=== PATIENT | female | born 1955 | race Caucasian/White ===

== ENCOUNTER 2017-09-23 06:21 | Inpatient (IN) | payer OTHER ==
[2017-09-19 10:17] VITALS: BMI 26.6
[2017-09-23] MEDS ORDERED: fentaNYL CITRATE 250 MCG/5 ML VIAL ONE ×2 (07:04→10:39)
[2017-09-23] MEDS ORDERED: TRANEXAMIC ACID 1000 MG/10 ML VIAL ONE ×2 (07:05→11:10)
[2017-09-23] MEDS ORDERED: DEXAMETHASONE SOD PHOSPHATE 4 MG/1 ML VIAL ONE (07:05)
[2017-09-23] MEDS ORDERED: MIDAZOLAM HCL 2 MG/2 ML SINGLE DOSE VIAL ONE (07:05)
[2017-09-23] MEDS ORDERED: THROMBIN (BOVINE) 5,000 UNIT VIAL TP ONE (07:05)
[2017-09-23] MEDS ORDERED: PROPOFOL 20 ML ONE ×12 (07:05→10:41)
[2017-09-23] MEDS ORDERED: HEPARIN NA (PORCINE) 5,000 UNITS/ML 1ML VIAL ONE (07:05)
[2017-09-23] MEDS ORDERED: LIDOCAINE HCL/PF 2% SDV 5ML VIAL ONE (07:05)
[2017-09-23] MEDS ORDERED: VANCOMYCIN 1,000 MG VIAL (RESTRICTED TO ID ONLY) ONE (07:05)
[2017-09-23] MEDS ORDERED: ONDANSETRON 4 MG/2 ML VIAL ONE (07:05)
[2017-09-23] MEDS ORDERED: SUCCINYLCHOLINE CHLORIDE 200 MG/10 ML VIAL ONE (07:05)
[2017-09-23] MEDS ORDERED: DESFLURANE GAS 240 ML BOTTLE IH ONE (07:16)
[2017-09-23] MEDS ORDERED: VANCOMYCIN 1,000 MG VIAL (RESTRICTED TO ID ONLY) IVPB ONE (07:45)
[2017-09-23] MEDS ORDERED: ceFAZolin SODIUM 1 GM VIAL ONE ×2 (08:54→18:37)
[2017-09-23] MEDS ORDERED: ceFAZolin SODIUM 1 GM VIAL IVPB ONE (08:55)
[2017-09-23] MEDS ORDERED: ROCURONIUM BROMIDE 50 MG/5 ML VIAL ONE (09:21)
[2017-09-23] MEDS ORDERED: NEOSTIGMINE METHYLSULFATE 0.5 MG/ML - 10 ML MDV ONE (09:59)
[2017-09-23] MEDS ORDERED: GLYCOPYRROLATE 0.2 MG/1 ML VIAL ONE (10:00)
[2017-09-23] MEDS ORDERED: ePHEDrine SULFATE 50 MG/1 ML AMPULE ONE (10:23)
[2017-09-23] MEDS: LACTATED RINGERS SOLUTION 1,000 ML IV SCH (11:45)
--- NOTE | 2017-09-23 11:45 | OP ---
Operative Note - Note: Operative Date: 09/23/17 Pre-Operative Diagnosis: L4-L5 spinal stenosis w/segmental instability Operation: 1. L4 laminectomy. 2. L4-L5 PLIF. 3. L4-L5 PISF Post-Operative Diagnosis: Same as Pre-op Surgeon: Baron Currie Block Tester: Gabriel Currie Anesthesiologist/CHARCOAL UNLOADER: Walker Vasquez Anesthesia: General Specimens Removed: L4-L5 disk Estimated Blood Loss (mls): 300 Blood Volume Replaced (mls): 125 (Cell Saver) Fluid Volume Replaced (mls): 1,200 Operative Report Dictated: Yes
[2017-09-23] MEDS ORDERED: diazePAM CARPU-JECT 10 MG/2 ML DISP.SYRIN IVPUSH PRN (11:47)
--- NOTE | 2017-09-23 11:47 | PN ---
Progress Note (short form) - Note Progress Note: 62F s/p L4 laminectomy, L4-L5 PLIF, & L4-L5 PISF POD #0. 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 -Mechanical DVT PPx. only: ANTONIO's, SCD's. -Incentive spirometry; pulmonary toilet. -PT/OT/Rehab, OOB. -WBAT B/L LE. -NPO until flatus. -f/u AM labs. -Frost catheter care; OK to d/c Frost when patient is ambulating. -Admit to medical hospitalist service. -Iva-op Antibiotics: Reza Magallanes. -Discharge planning. -Will follow. Baron Currie MD (Orthopaedic Surgery).
[2017-09-23] MEDS ORDERED: ACETAMINOPHEN INJECTION 100 ML IVPB ONE (12:22)
[2017-09-23] MEDS: ACETAMINOPHEN 1000 MG/100 ML VIAL (NON FORMULARY) IVPB SCH ×2 (12:25→22:12)
[2017-09-23] MEDS ORDERED: VANCOMYCIN 1,000 MG in DEXTROSE 5%-WATER - 250 ML IVPB ONE (12:30)
[2017-09-23] MEDS ORDERED: HYDROmorphone *PCA* 10MG/50ML DISP.SYRIN PCA ONE (12:48)
[2017-09-23] MEDS: HYDROmorphone *PCA* 10MG/50ML DISP.SYRIN PCA SCH (12:51)
--- NOTE | 2017-09-23 13:52 | OP ---
DATE OF OPERATION: 09/23/2017 SURGEON: Baron Currie MD MANAGEMENT AIDE: Gabriel Currie MD PREOPERATIVE DIAGNOSIS: Lumbar disk prolapse L4-5 with spinal stenosis, segmental instability, and right-sided L4 radiculopathy. POSTOPERATIVE DIAGNOSIS: Lumbar disk prolapse L4-5 with spinal stenosis, segmental instability, and right-sided L4 radiculopathy. OPERATION PERFORMED: 1. Laminectomy L4. 2. Diskectomy L4-5 with posterior lumbar interbody fusion. 3. Pedicle screw instrumentation L4-5. 4. Posterior arthrodesis L4-5. 5. Use of autologous bone graft and bone marrow aspirate concentrate. 6. Complex wound closure 4 layers. ANESTHESIA: General. ANTIBIOTICS GIVEN: Included 2 g Kefzol and 1 of vancomycin. PROCEDURE: Timeout was called. Imaging was available for intraoperative evaluation. Lumbar spine prepped and draped in a routine manner with Betadine scrub solution. Wiped off with alcohol. DuraPrep applied. The lumbar spine was prepped and draped in the routine manner. Midline incision utilized. Verification of the level of the incision was verified with lateral fluoroscopic x-ray. Dissection was taken down the spinous process of the lamina over the tip of the transverse processes. The intertransverse plane was packed with sponges. The lamina of L4 were resected. This gave easy access to the theca. There was no epidural fat. The flavum was resected. The entire lamina of L4 was removed for easy access to the central disk prolapse. Retraction from right to left enabled easy access to the disk. Disk bulging annulus was readily seen. This was resected. An 11 blade utilized and elliptical annulectomy performed. Shaving with a size 11 and a size 12 Tetrafuse cage was packed into the interdisk space. Prior to the packing of this, all disk material was removed and soft tissue elements down to endplate to healthy, bleeding bone. The disk was packed from the posterior elements that were removed in a [employer] morselised bony elements into the disk space, thus completing anterior arthrodesis, and the cage was filled with graft itself. This was press fit into position. This gave excellent x-ray visualization and wide-open disk space noted. Pedicles of L4 and L5 were identified using anatomic guidelines. Lateral fluoroscopic x-ray guided screws under the endplates. The screws were 40 x 6.5-mm screws (Precision screws). The rods measured 40 x 2. The screws were tested with intraoperative neuromonitoring and found to be completely safe well above the neuromonitoring safe standards, that is well above 20 mA in each cage. Once this had been performed, the intertransverse plane was packed with graft. This was a combination of autologous allograft expanded with strips all mixed with CD34 cells, mainly marrow harvested from the left posterior ilium spun down for the CD34 cells as bone marrow aspirate concentrate. The wounds were thoroughly lavaged. No complications. All neuromonitoring and x-rays revealed excellent positioning of implants. Closure: Muscle 1 Vicryl, fascia 1 Vicryl, subcutaneous 1- and 2-0 Vicryl, skin 3-0 Monocryl with Steri-Strips. No drains. Operation tolerated well. No complications. MD PAUL Khoury/[id number] MTDD
[2017-09-23] MEDS ORDERED: CITALOPRAM HYDROBROMIDE 10 MG TABLET (FP) PO PRN (15:50)
[2017-09-23] MEDS: CEFAZOLIN 1 GM in DEXTROSE 5%-WATER - 50 ML IVPB SCH (18:44)
[2017-09-23] MEDS ORDERED: VANCOMYCIN 1 GRAM (PRE-DOCKED) 1,000 MG/250 ML BAG IVPB ONE (20:00)
[2017-09-24] MEDS: HYDROmorphone *PCA* 10MG/50ML DISP.SYRIN PCA SCH ×2 (00:44→16:35)
[2017-09-24] MEDS: LACTATED RINGERS SOLUTION 1,000 ML IV SCH ×2 (00:51→12:02)
[2017-09-24] MEDS: CEFAZOLIN 1 GM in DEXTROSE 5%-WATER - 50 ML IVPB SCH (03:06)
[2017-09-24] MEDS ORDERED: CEFAZOLIN 1 GM/D5W 1 GM/50 ML BAG IVPB ONE (03:15)
[2017-09-24] MEDS: ACETAMINOPHEN 1000 MG/100 ML VIAL (NON FORMULARY) IVPB SCH ×3 (06:00→20:11)
[2017-09-24 08:12] LABS: HEMATOCRIT 30.3 % (32.4-45.2); HEMOGLOBIN 10.2 GM/dL (10.7-15.3); MCH 29.2 pg (25.7-33.7); MCHC 33.8 g/dl (32.0-36.0); MEAN CELL VOLUME 86.4 fl (80-96); MEAN PLT VOLUME 10.6 fl (7.5-11.1); PLATELET COUNT 126 K/MM3 (134-434); RBC 3.51 M/mm3 (3.60-5.2); RDW 13.4 % (11.6-15.6); WHITE BLOOD COUNT 11.2 K/mm3 (4.0-10.0)
[2017-09-24 08:16] LABS: ANION GAP 4 (8-16); BLOOD UREA NITROGEN 9 mg/dL (7-18); CALCIUM 8.2 mg/dL (8.5-10.1); CHLORIDE 107 mmol/L (98-107); CO2 30 mmol/L (21-32); CREATININE 0.4 mg/dL (0.55-1.02); GLUCOSE,RANDOM 106 mg/dL (74-106); POTASSIUM 4.1 mmol/L (3.5-5.1); SODIUM 141 mmol/L (136-145)
--- NOTE | 2017-09-24 09:06 | HP ---
CHIEF COMPLAINT: PCP: Dr. Lewis HISTORY OF PRESENT ILLNESS: Patient is a 62 year old female came in to the hospital for an Elective Laminectomy. As per the patient, she had chronic low back pain, had h/o mechanical fall twice in 2012 and 2014. Low back pain had been progressively getting worse since then. Saw Dr. Currie as outpatient and elective laminectomy was done yesterday (09/23/2017). Patient is currently on Dilaudid HRIS ADMINISTRATOR for pain control. Complaints of pain at the surgical site, controlled with HRIS ADMINISTRATOR, has nausea and vomited once this morning, non bloody, non projectile, thin greenish liquid. Denies chest pain, sob, cough, palpitation, abdominal pain, tingling or numbness. Has been passing flatus. Frost in place. Recent Travel: None PAST MEDICAL HISTORY: Hypertension, Hyperlipidemia, Depression PAST SURGICAL HISTORY: 3 c-sec Social History: Smoking: Quit > 30 yrs ago Alcohol: Socially Drugs: Denies Family History: Non contributory Allergies Penicillins Allergy (Severe, Verified 09/23/17 07:01) Itching HOME MEDICATIONS: Home Medications Medication Instructions Recorded Amlodipine Besylate 5 mg PO DAILY 09/19/17 Citalopram Hydrobromide 10 mg PO PRN PRN 09/19/17 [Citalopram HBr] Losartan Potassium 50 mg PO DAILY 09/19/17 Pravastatin Sodium 20 mg PO HS 09/19/17 Ibuprofen 800 mg PO PRN PRN 09/23/17 Naproxen [Naprosyn] 500 mg PO PRN PRN 09/23/17 REVIEW OF SYSTEMS CONSTITUTIONAL: Absent: fever, chills, diaphoresis, generalized weakness, malaise, loss of appetite, weight change HEENT: Absent: rhinorrhea, nasal congestion, throat pain, throat swelling, difficulty swallowing, mouth swelling, ear pain, eye pain, visual changes CARDIOVASCULAR: Absent: chest pain, syncope, palpitations, irregular heart rate, lightheadedness , peripheral edema RESPIRATORY: Absent: cough, shortness of breath, dyspnea with exertion, orthopnea, wheezing, stridor, hemoptysis GASTROINTESTINAL: Present: nausea, vomiting Absent: abdominal pain, abdominal distension, diarrhea, constipation, melena, hematochezia GENITOURINARY: Absent: dysuria, frequency, urgency, hesitancy, hematuria, flank pain, genital pain MUSCULOSKELETAL: Present: back pain at the surgical site Absent: myalgia, arthralgia, joint swelling, neck pain SKIN: Absent: rash, itching, pallor HEMATOLOGIC/IMMUNOLOGIC: Absent: easy bleeding, easy bruising, lymphadenopathy, frequent infections ENDOCRINE: Absent: unexplained weight gain, unexplained weight loss, heat intolerance, cold intolerance NEUROLOGIC: Absent: headache, focal weakness or paresthesias, dizziness, unsteady gait, seizure, mental status changes, bladder or bowel incontinence PSYCHIATRIC: Absent: anxiety, depression, suicidal or homicidal ideation, hallucinations. PHYSICAL EXAMINATION Vital Signs - 24 hr 09/23/17 09/23/17 09/23/17 11:36 11:45 12:00 Temperature 97.6 F Pulse Rate 74 73 69 Respiratory 14 14 10 L Rate Blood Pressure 110/75 129/73 105/76 O2 Sat by Pulse 100 100 100 Oximetry (%) 09/23/17 09/23/17 09/23/17 12:15 12:30 12:45 Temperature Pulse Rate 71 86 77 Respiratory 11 L 14 14 Rate Blood Pressure 112/57 100/62 108/76 O2 Sat by Pulse 100 100 100 Oximetry (%) 09/23/17 09/23/17 09/23/17 12:51 13:00 13:15 Temperature Pulse Rate 77 9 L 66 Respiratory 14 11 L 10 L Rate Blood Pressure 108/73 112/72 106/61 O2 Sat by Pulse 99 100 Oximetry (%) 09/23/17 09/23/17 09/23/17 13:30 13:45 14:00 Temperature Pulse Rate 55 L 69 61 Respiratory 10 L 11 L 10 L Rate Blood Pressure 105/70 118/70 106/61 O2 Sat by Pulse 100 100 100 Oximetry (%) 09/23/17 09/23/17 09/23/17 14:15 14:30 14:45 Temperature Pulse Rate 60 61 60 Respiratory 15 12 10 L Rate Blood Pressure 102/56 104/58 101/52 O2 Sat by Pulse 100 100 100 Oximetry (%) 09/23/17 09/23/17 09/23/17 15:00 15:15 15:30 Temperature Pulse Rate 72 73 72 Respiratory 11 L 12 16 Rate Blood Pressure 100/58 100/47 100/50 O2 Sat by Pulse 100 100 100 Oximetry (%) 04/09/18 04/09/18 04/09/18 15:45 16:00 16:30 Temperature Pulse Rate 76 82 68 Respiratory 13 16 12 Rate Blood Pressure 105/59 98/59 100/62 O2 Sat by Pulse 98 100 Oximetry (%) 09/23/17 09/23/17 09/23/17 17:00 17:30 17:45 Temperature Pulse Rate 80 79 68 Respiratory 20 15 12 Rate Blood Pressure 111/68 117/64 106/58 O2 Sat by Pulse 100 100 Oximetry (%) 09/23/17 09/23/17 09/23/17 18:00 18:30 19:00 Temperature Pulse Rate 71 60 66 Respiratory 16 18 18 Rate Blood Pressure 100/58 100/57 100/58 O2 Sat by Pulse 100 100 100 Oximetry (%) 09/23/17 09/23/17 09/24/17 19:30 22:00 00:44 Temperature 98.3 F 98.5 F Pulse Rate 62 68 75 Respiratory 18 18 18 Rate Blood Pressure 102/66 120/63 110/62 O2 Sat by Pulse 98 Oximetry (%) 09/24/17 09/24/17 01:14 07:00 Temperature 98.8 F Pulse Rate 70 72 Respiratory 18 18 Rate Blood Pressure 110/65 96/59 O2 Sat by Pulse Oximetry (%) GENERAL: Patient is lying in bed, Awake, alert, and fully oriented, in no acute distress. HEAD: Normal with no signs of trauma. EYES: EOM intact, no pallor or icterus. EARS, NOSE, THROAT: Ears normal. Moist mucous membranes. NECK: Supple. LUNGS: B/L Breath sounds equal, clear to auscultation bilaterally. No wheezes, and no crackles. No accessory muscle use. HEART: Regular rate and rhythm, normal S1 and S2 without murmur. ABDOMEN: Soft, nontender, not distended, normoactive bowel sounds, no guarding, no rebound, no masses. No hepatomegaly or splenomegaly. MUSCULOSKELETAL: Dressing applied over the surgical site in the back, surrounding area looks clean, non erythematous. UPPER EXTREMITIES: 2+ pulses, warm, well-perfused. No cyanosis. No clubbing. No peripheral edema. LOWER EXTREMITIES: 2+ pulses, warm, well-perfused. No calf tenderness. No peripheral edema. NEUROLOGICAL: Normal speech. Gait not observed. PSYCHIATRIC: Cooperative. Good eye contact. Appropriate mood and affect. SKIN: Warm, dry, normal turgor, no rashes or lesions noted, normal capillary refill. Laboratory Results - last 24 hr 09/24/17 09/24/17 06:15 06:15 WBC 11.2 H RBC 3.51 L Hgb 10.2 L Hct 30.3 L MCV 86.4 MCH 29.2 MCHC 33.8 RDW 13.4 Plt Count 126 L MPV 10.6 Sodium 141 Potassium 4.1 Chloride 107 Carbon Dioxide 30 Anion Gap 4 L BUN 9 Creatinine 0.4 L Random Glucose 106 Calcium 8.2 L ASSESSMENT/PLAN: Patient is a 62 year old female with chronic low back pain came in to the hospital for an Elective Laminectomy. # Low back pain secondary to L4-L5 spinal stenosis with segmental instability- POD 1 s/p L4 Laminectomy; L4- L5 PLIF, L4-L5 PISF Estimated blood loss- 300 mls, cell saver 125 mls. 1200 ml fluid was replaced. IV LR @ 100 mls/hr On HRIS ADMINISTRATOR Dilaudid pump for pain control IV Zofran 4 mg Q6H PRN (Normal Qtc) IV Tylenol Frost in place Incentive Spirometer NPO, advance diet as per Dr. Currie. PT when tolerated. # Hypertension- now hypotensive Will hold home medication for today- Amlodipine 5 mg; Losartan 50mg # Hyperlipidemia Continue Pravastatin 20mg PO HS # Depression Continue Citalopram 10mg # All medications confirmed with pharmacy # FEN IV LR @ 100 mls/hr Electrolytes WNL NPO except for meds and ice chips # Prophylaxis For DVT: ON SCDs For GI: Not indicated # Code Status: Full Code # Dispo: Duration of stay unknown. Illness, Investigation and plan of care explained to the patient. She verbalized understanding. Case discussed with Dr. Simmons. Visit type - Emergency Visit Emergency Visit: Yes ED Registration Date: 09/23/17 Care time: The patient presented to the Emergency Department on the above date and was hospitalized for further evaluation of their emergent condition. - New Patient This patient is new to me today: Yes Date on this admission: 09/23/17 - Critical Care Critical Care patient: No Hospitalist Screening - Colonoscopy Questionnaire Colonoscopy Questionnaire: Colonoscopy Questionnaire - Patient: 50 - 75 years old and never had a screening colonoscopy: Unknown History of colon or rectal polyps, or CA: Unknown History of IBD, Crohn's disease or UC: Unknown History of abdominal radiation therapy as a child: Unknown - Relative: 1 with colon or rectal CA, or polyps at age 60 or younger: Unknown Colon or rectal CA diagnosed at age 45 or younger: Unknown Multiple relatives with colon or rectal CA: Unknown - Outcome: Screening Result: Negative Screen
[2017-09-24] MEDS: ONDANSETRON 4 MG/2 ML VIAL IVPUSH PRN (09:57)
[2017-09-24] MEDS ORDERED: LOSARTAN POTASSIUM 50 MG TABLET (FP) PO SCH ×2 (10:00→12:26)
[2017-09-24] MEDS ORDERED: amLODIPine BESYLATE 5 MG TABLET (FP) PO SCH ×2 (10:00→12:26)
--- NOTE | 2017-09-24 15:04 | PN ---
Teaching Attending Note Name of Resident: Ledy Rodriguez ATTENDING PHYSICIAN STATEMENT I saw and evaluated the patient. I reviewed the resident's note and discussed the case with the resident. I agree with the resident's findings and plan as documented with exceptions below. SUBJECTIVE: 62 yof with PMhx of HTN, HLD, depression, chronic back pain admitted for elective laminectomy today. Currently reports back pain under well control, no new leg weakness/tingling/ numbness, chest pain, palpitations, dyspnea or dizziness noted. OBJECTIVE: Vital Signs Period Temp Pulse Resp BP Sys/Desai Pulse Ox Last 24 Hr 98.0 F-98.8 F 60-115 12-20 96-120/57-78 98-100 Intake & Output 09/21/17 09/22/17 09/23/17 09/24/17 23:59 23:59 23:59 23:59 Intake Total 2475 1300 Output Total 3700 750 Balance -1225 550 GENERAL: Awake, alert, and fully oriented, in no acute distress. HEAD: Normal with no signs of trauma. EYES: Pupils equal, round and reactive to light, extraocular movements intact, sclera anicteric, conjunctiva clear. No lid lag. EARS, NOSE, THROAT: Ears normal, nares patent, oropharynx clear without exudates. mildly dry mucous membrane NECK: soft, supple, no JVD LUNGS: Breath sounds equal, clear to auscultation bilaterally. No wheezes, and no crackles. No accessory muscle use. HEART: S1S2 regular ABDOMEN: Soft, nontender, not distended, normoactive bowel sounds, no guarding, no rebound, no masses. MUSCULOSKELETAL: spinal dressing in place, no drainage or blood noted in the area, no surrounding swelling, LE movements limited from back pain (chronic per patient) UPPER EXTREMITIES: 2+ pulses, warm, well-perfused. No cyanosis. No clubbing. No peripheral edema. LOWER EXTREMITIES: 2+ pulses, warm, well-perfused. No calf tenderness. No peripheral edema. NEUROLOGICAL: AAOx3, tongue midline, facial symmetry, power 5/5 UE, LE 5/5 at feet, movements limited by pain, no gross deficit PSYCHIATRIC: Cooperative. Good eye contact. Appropriate mood and affect. SKIN: Warm, dry, mildly decreased skin turgor, no rashes or lesions noted, normal capillary refill. Home Medication List Medication Instructions Recorded Confirmed Type Amlodipine Besylate 5 mg PO DAILY 09/19/17 09/23/17 History Citalopram Hydrobromide 10 mg PO PRN PRN 09/19/17 09/23/17 History [Citalopram HBr] Losartan Potassium 50 mg PO DAILY 09/19/17 09/23/17 History Pravastatin Sodium 20 mg PO HS 09/19/17 09/23/17 History Ibuprofen 800 mg PO PRN PRN 09/23/17 09/23/17 History Naproxen [Naprosyn] 500 mg PO PRN PRN 09/23/17 09/23/17 History Active Medications Generic Name Dose Route Start Last Admin Trade Name Freq PRN Reason Stop Dose Admin Acetaminophen 1,000 mg 09/23/17 12:00 09/24/17 14:09 Ofirmev Injection - IVPB 09/25/17 04:01 1,000 mg Q8H DAMIÁN Administration Amlodipine Besylate 5 mg 09/24/17 12:26 Norvasc - PO DAILY DAMIÁN Citalopram Hydrobromide 10 mg 09/23/17 15:50 Celexa - PO DAILY PRN DEPRESSION Hydromorphone HCl 10 mg 09/23/17 12:00 09/24/17 00:44 Dilaudid Roller Die Cutting Machine Operator - TECHNICAL ACCOUNT EXECUTIVE 09/26/17 11:55 10 mg TECHNICAL ACCOUNT EXECUTIVE DAMIÁN Administration Protocol Lactated Ringer's 1,000 mls @ 100 mls/hr 09/23/17 12:00 09/24/17 12:02 Lactated Ringers Solution IV Not Given ASDIR DAMIÁN Losartan Potassium 50 mg 09/24/17 12:26 Cozaar - PO DAILY DAMIÁN Ondansetron HCl 4 mg 09/23/17 11:47 09/24/17 09:57 Zofran Injection IVPUSH 4 mg Q6H PRN Administration NAUSEA AND/OR VOMITING Laboratory Results - last 24 hr 09/24/17 09/24/17 06:15 06:15 WBC 11.2 H RBC 3.51 L Hgb 10.2 L Hct 30.3 L MCV 86.4 MCH 29.2 MCHC 33.8 RDW 13.4 Plt Count 126 L MPV 10.6 Sodium 141 Potassium 4.1 Chloride 107 Carbon Dioxide 30 Anion Gap 4 L BUN 9 Creatinine 0.4 L Random Glucose 106 Calcium 8.2 L ASSESSMENT AND PLAN: 62 yof with HTN, HLD, depression, chronic back pain s/p elective laminectomy -Chronic back pain s/p elective laminectomy -HTN -HLD -Depression Plan: Dilaudid TECHNICAL ACCOUNT EXECUTIVE. Advance diet, PT per Dr. Currie. Bowel regimen. Hold home anti-hypertensives today, resume in AM based on BP readings. Continue statin/citalopram DVTPPx per Dr Currie Dispo planning PT eval, and clinical improvement. Total admit time spent 55 min.
--- NOTE | 2017-09-24 16:43 | PATH ---
Surgical Pathology Report Patient Name: BRE FELDER Med. Rec. #: [id number] /Age/Gender: 1955 (Age: 62) / F Account: [id number] Location: [facility] MED/SURG Taken: 09/23/2017 Received: 09/23/2017 Reported: 09/24/2017 Physicians: Baron Currie M.D. Specimen(s) Received DISC L4/L5 Clinical History Lumbar disc disorder Final Diagnosis DISC, L4/L5, POSTERIOR INTERBODY FUSION: INTERVERTEBRAL DISC TISSUE AND SCANT BONE. Electronically Signed Bre Carter M.D. Gross Description Received in formalin labeled "disc L4/L5," is a 3.5 x 2.8 x 0.4 cm aggregate of casiano fragments of fibrocartilaginous tissue. A field representative/health education portion is submitted in one cassette. /09/23/2017 saudi/09/23/2017
--- NOTE | 2017-09-24 18:21 | PN ---
Progress Note, Physician Chief Complaint: Pt. pain controlled with TRACTION POWER ENGINEER. Had some nausea controlled with Zofran. Did not do PT today because of nausea. Advised her to take Zofran before PT tomorrow. - Current Medication List Current Medications: Active Medications Acetaminophen (Ofirmev Injection -) 1,000 mg IVPB Q8H [facility] Stop: 09/25/17 04:01 Last Admin: 09/24/17 14:09 Dose: 1,000 mg Amlodipine Besylate (Norvasc -) 5 mg PO DAILY DAMIÁN Citalopram Hydrobromide (Celexa -) 10 mg PO DAILY PRN PRN Reason: DEPRESSION Hydromorphone HCl (Dilaudid Bilingual Call Center Representative -) 10 mg TRACTION POWER ENGINEER TRACTION POWER ENGINEER DAMIÁN PRN Reason: Protocol Stop: 09/26/17 11:55 Last Admin: 09/24/17 16:35 Dose: Not Given Lactated Ringer's (Lactated Ringers Solution) 1,000 mls @ 100 mls/hr IV ASDIR DAMIÁN Last Admin: 09/24/17 12:02 Dose: Not Given Losartan Potassium (Cozaar -) 50 mg PO DAILY [facility] Ondansetron HCl (Zofran Injection) 4 mg IVPUSH Q6H PRN PRN Reason: NAUSEA AND/OR VOMITING Last Admin: 09/24/17 09:57 Dose: 4 mg - Objective Vital Signs: Vital Signs Temperature 100.4 F H 09/24/17 18:17 Pulse Rate 80 09/24/17 18:17 Respiratory Rate 20 09/24/17 18:17 Blood Pressure 97/42 09/24/17 18:17 O2 Sat by Pulse Oximetry (%) 98 09/23/17 22:00 Constitutional: Yes: Well Nourished, No Distress, Calm Neurological: Yes: WNL, Alert, Oriented Labs: CBC, BMP 09/24/17 06:15 09/24/17 06:15 Assessment/Plan POD#1 s/p L4-5 fusion under GA with TRACTION POWER ENGINEER for pain control. Doing well. Continue TRACTION POWER ENGINEER.
[2017-09-25] MEDS: LACTATED RINGERS SOLUTION 1,000 ML IV SCH ×3 (01:05→20:29)
--- NOTE | 2017-09-25 06:00 | PN ---
Physical Exam: SUBJECTIVE: Patient seen and examined - febrile to 100.4 overnight; c/o of n/v, received zofran; currently NPO - No major overnight events; Mild pain/burning at surgical site, L>R; Mild nausea, no vomiting; No BMs/flatus; Denies f/c/v/d, CP, cough, ab pain, back pain; no neuro symptoms OBJECTIVE: Vital Signs Intake & Output 09/22/17 09/23/17 09/24/17 09/25/17 23:59 23:59 23:59 23:59 Intake Total 2475 2300 Output Total 3700 1150 Balance -1225 1150 Period Temp Pulse Resp BP Sys/Desai Pulse Ox Last 24 Hr 98.0 F-100.4 F 70-115 18-20 96-117/42-78 GENERAL: Middle aged woman, NAD, A&Ox3 HEAD: Normal with no signs of trauma. EYES: PERRL, extraocular movements intact, sclera anicteric, conjunctiva clear. No ptosis. ENT: Ears normal, nares patent, oropharynx clear without exudates, moist mucous membranes. NECK: Trachea midline, full range of motion, supple. LUNGS: Breath sounds equal, clear to auscultation bilaterally, no wheezes, no crackles, no accessory muscle use. HEART: Regular rate and rhythm, S1, S2 without murmur, rub or gallop. ABDOMEN: L CVA tenderness. No erythema or purulence at surgical site. Soft, nontender, nondistended, normoactive bowel sounds, no guarding, no rebound, no hepatosplenomegaly, no masses. EXTREMITIES: 2+ pulses, warm, well-perfused, no edema. NEUROLOGICAL: Cranial nerves II through XII grossly intact. Normal speech, gait not observed. PSYCH: Normal mood, normal affect. SKIN: Warm, dry, normal turgor, no rashes or lesions noted Laboratory Results - last 24 hr CBC, BMP 09/24/17 06:15 09/24/17 06:15 09/24/17 09/24/17 06:15 06:15 WBC 11.2 H RBC 3.51 L Hgb 10.2 L Hct 30.3 L MCV 86.4 MCH 29.2 MCHC 33.8 RDW 13.4 Plt Count 126 L MPV 10.6 Sodium 141 Potassium 4.1 Chloride 107 Carbon Dioxide 30 Anion Gap 4 L BUN 9 Creatinine 0.4 L Random Glucose 106 Calcium 8.2 L Active Medications Generic Name Dose Route Start Last Admin Trade Name William PRN Reason Stop Dose Admin Amlodipine Besylate 5 mg 09/24/17 12:26 Norvasc - PO DAILY DAMIÁN Citalopram Hydrobromide 10 mg 09/23/17 15:50 Celexa - PO DAILY PRN DEPRESSION Hydromorphone HCl 10 mg 09/23/17 12:00 09/24/17 16:35 Dilaudid Insole Channeler - STRIP PICKER 09/26/17 11:55 Not Given STRIP PICKER DAMIÁN Protocol Lactated Ringer's 1,000 mls @ 100 mls/hr 09/23/17 12:00 09/25/17 01:05 Lactated Ringers Solution IV 100 mls/hr ASDIR DAMIÁN Administration Losartan Potassium 50 mg 09/24/17 12:26 Cozaar - PO DAILY DAMIÁN Ondansetron HCl 4 mg 09/23/17 11:47 09/24/17 09:57 Zofran Injection IVPUSH 4 mg Q6H PRN Administration NAUSEA AND/OR VOMITING Urine, blood cultures pending No recent imaging ASSESSMENT/PLAN: Patient is a 62 year old female with chronic low back pain came in to the hospital for an Elective Laminectomy. POD1, doing well. very mild fever overnight. Urine culture # Low back pain secondary to L4-L5 spinal stenosis with segmental instability- POD 1 - IV LR @ 100 mls/hr - Dilaudid STRIP PICKER -IV Zofran 4 mg Q6H PRN (Normal Qtc) -IV Tylenol - d/c webb -Incentive Spirometer - remainder of plan per surgical team #Post-op fever -101 today - U/A, blood and urine cultures sent - ISS counseling #Constipation - Senna, colace - Miralax PRN # Hypertension- BP normotensive today hold home meds - Amlodipine 5 mg; Losartan 50mg # Hyperlipidemia Continue Pravastatin 20mg PO HS # Depression Continue Citalopram 10mg # FEN IV LR @ 100 mls/hr Electrolytes WNL NPO until flatus or BM, then clears # Prophylaxis For DVT-SCDs # Code Status: Full Code #Dispo - M/S Plan discussed with attending, Dr Troy Jaquez, PGY1 Visit type - Emergency Visit Emergency Visit: Yes ED Registration Date: 09/23/17 Care time: The patient presented to the Emergency Department on the above date and was hospitalized for further evaluation of their emergent condition. - New Patient This patient is new to me today: No - Critical Care Critical Care patient: No
[2017-09-25] MEDS: ACETAMINOPHEN 1000 MG/100 ML VIAL (NON FORMULARY) IVPB SCH (06:24)
[2017-09-25 07:24] LABS: HEMATOCRIT 28.4 % (32.4-45.2); HEMOGLOBIN 9.6 GM/dL (10.7-15.3); MCH 29.4 pg (25.7-33.7); MCHC 33.8 g/dl (32.0-36.0); MEAN CELL VOLUME 86.9 fl (80-96); PLATELET COUNT 110 K/MM3 (134-434); RBC 3.26 M/mm3 (3.60-5.2); RDW 13.3 % (11.6-15.6)
[2017-09-25] MEDS ORDERED: SODIUM CHLORIDE 500 ML IV STA (07:59)
--- NOTE | 2017-09-25 15:13 | PN ---
Teaching Attending Note Name of Resident: Dread Jaquez ATTENDING PHYSICIAN STATEMENT I saw and evaluated the patient. I reviewed the resident's note and discussed the case with the resident. I agree with the resident's findings and plan as documented with exceptions below. SUBJECTIVE: Patient seen and examined. back pain well controlled, no new cough, dyspnea, abdominal or urinary symptoms, overall feels well. OBJECTIVE: Vital Signs Period Temp Pulse Resp BP Sys/Desai Pulse Ox Last 24 Hr 98.0 F-101 F 70-86 18-20 97-135/42-66 Intake & Output 09/22/17 09/23/17 09/24/17 09/25/17 23:59 23:59 23:59 23:59 Intake Total 2475 2300 1300 Output Total 3700 1150 800 Balance -1225 1150 500 General: lying in bed in no acute distress Back: clean dressing, unchanged exam Abdomen:soft, obese, NT extremities: no edema Chest; CTAB, no rales or wheezing Home Medication List Medication Instructions Recorded Confirmed Type Amlodipine Besylate 5 mg PO DAILY 09/19/17 09/23/17 History Citalopram Hydrobromide 10 mg PO PRN PRN 09/19/17 09/23/17 History [Citalopram HBr] Losartan Potassium 50 mg PO DAILY 09/19/17 09/23/17 History Pravastatin Sodium 20 mg PO HS 09/19/17 09/23/17 History Ibuprofen 800 mg PO PRN PRN 09/23/17 09/23/17 History Naproxen [Naprosyn] 500 mg PO PRN PRN 09/23/17 09/23/17 History Active Medications Generic Name Dose Route Start Last Admin Trade Name Freq PRN Reason Stop Dose Admin Citalopram Hydrobromide 10 mg 09/23/17 15:50 Celexa - PO DAILY PRN DEPRESSION Hydromorphone HCl 10 mg 09/23/17 12:00 09/24/17 16:35 Dilaudid Duplex Trimmer - DEBONE PROCESSING SUPERVISOR 09/26/17 11:55 Not Given DEBONE PROCESSING SUPERVISOR DAMIÁN Protocol Lactated Ringer's 1,000 mls @ 100 mls/hr 09/23/17 12:00 09/25/17 09:47 Lactated Ringers Solution IV 100 mls/hr ASDIR DAMIÁN Administration Ondansetron HCl 4 mg 09/23/17 11:47 09/24/17 09:57 Zofran Injection IVPUSH 4 mg Q6H PRN Administration NAUSEA AND/OR VOMITING Laboratory Results - last 24 hr 09/25/17 05:35 WBC 10.0 RBC 3.26 L Hgb 9.6 L Hct 28.4 L MCV 86.9 MCH 29.4 MCHC 33.8 RDW 13.3 Plt Count 110 L MPV 11.0 ASSESSMENT AND PLAN: 62 yof with HTN, HLD, depression, chronic back pain s/p elective laminectomy -Chronic back pain s/p elective laminectomy -Fever post-op day 1 -HTN -HLD -Depression Plan: Dilaudid DEBONE PROCESSING SUPERVISOR. Advance diet, PT per Dr. Currie. Bowel regimen. Tmax 101 today, u/a, blood/urine cultures. Stressed patient need for incentive spirometry q1h when awake. Monitor for now. Hold home anti-hypertensives today as still with soft BP and NPO. Continue statin/citalopram DVTPPx per Dr Currie Dispo planning PT eval, and clinical improvement. Plan discussed with patient in detail, all questions answered.
[2017-09-25] MEDS ORDERED: POLYETHYLENE GLYCOL 3350 119 GM BTL PO PRN (16:20)
[2017-09-25 16:43] LABS: URINE APPEARANCE CLEAR; URINE BILIRUBIN NEGATIVE (<2.0 mg/dL); URINE COLOR LTYELLOW; URINE GLUCOSE (UA) NEGATIVE (NEGATIVE); URINE KETONE 2+ (NEGATIVE); URINE LEUK ESTERASE NEGATIVE (NEGATIVE); URINE NITRITE NEGATIVE (NEGATIVE); URINE PROTEIN NEGATIVE (NEGATIVE); URINE UROBILINOGEN NEGATIVE mg/dL (0.2-1.0)
[2017-09-25] MEDS: ONDANSETRON 4 MG/2 ML VIAL IVPUSH PRN (17:27)
[2017-09-25] MEDS ORDERED: ACETAMINOPHEN 1000 MG/100 ML VIAL (NON FORMULARY) IVPB ONE (17:59)
[2017-09-25] MEDS: HYDROmorphone *PCA* 10MG/50ML DISP.SYRIN PCA SCH (21:32)
[2017-09-25] MEDS: DOCUSATE SODIUM 100 MG CAPSULE (FP) PO SCH (21:35)
[2017-09-25] MEDS: SENNOSIDES 8.6MG TABLET (FP) PO SCH (21:35)
--- NOTE | 2017-09-26 06:31 | PN ---
Physical Exam: SUBJECTIVE: Patient seen and examined by me this AM - No major overnight events; febrile to 101; pt complaining of BL back pain which she describes as "stinging"; Bl anterior thigh cramping; Still no BM or flatus, despite bowel regimen; on clears currently, mild nausea OBJECTIVE: Vital Signs Intake & Output 09/23/17 09/24/17 09/25/17 09/26/17 23:59 23:59 23:59 23:59 Intake Total 2475 2300 2750 Output Total 3700 1150 1200 Balance -1225 1150 1550 Period Temp Pulse Resp BP Sys/Desai Pulse Ox Last 24 Hr 98.2 F-101 F 68-95 18-20 98-135/54-84 99 GENERAL: Middle aged woman, NAD, A&Ox3 HEAD: Normal with no signs of trauma. EYES: PERRL, extraocular movements intact, sclera anicteric, conjunctiva clear. No ptosis. ENT: Ears normal, nares patent, oropharynx clear without exudates, moist mucous membranes. NECK: Trachea midline, full range of motion, supple. LUNGS: Breath sounds equal, clear to auscultation bilaterally, no wheezes, no crackles, no accessory muscle use. HEART: Regular rate and rhythm, S1, S2 without murmur, rub or gallop. ABDOMEN: BL CVA tenderness. No erythema or purulence at surgical site, dressing c/d/i. Soft, nontender, nondistended, normoactive bowel sounds, no guarding, no rebound, no hepatosplenomegaly, no masses. EXTREMITIES: 2+ pulses, warm, well-perfused, no edema. NEUROLOGICAL: Cranial nerves II through XII grossly intact. Normal speech, gait not observed. PSYCH: Normal mood, normal affect. SKIN: Warm, dry, normal turgor, no rashes or lesions noted Laboratory Results - last 24 hr CBC, BMP 09/26/17 06:00 09/26/17 06:00 09/25/17 05:35 09/24/17 06:15 09/25/17 09/25/17 05:35 15:36 WBC 10.0 RBC 3.26 L Hgb 9.6 L Hct 28.4 L MCV 86.9 MCH 29.4 MCHC 33.8 RDW 13.3 Plt Count 110 L MPV 11.0 Urine Color Ltyellow Urine Appearance Clear Urine pH 6.0 Ur Specific [place] 1.018 Urine Protein Negative Urine Glucose (UA) Negative Urine Ketones 2+ H Urine Blood Negative Urine Nitrite Negative Urine Bilirubin Negative Urine Urobilinogen Negative Ur Leukocyte Esterase Negative Active Medications Generic Name Dose Route Start Last Admin Trade Name Freq PRN Reason Stop Dose Admin Citalopram Hydrobromide 10 mg 09/23/17 15:50 Celexa - PO DAILY PRN DEPRESSION Docusate Sodium 100 mg 09/25/17 22:00 09/25/17 21:35 Colace - PO 100 mg TID DAMIÁN Administration Hydromorphone HCl 10 mg 09/23/17 12:00 09/25/17 21:32 Dilaudid General Manager Farm - WORKERS COMPENSATION CLAIMS ANALYST 09/26/17 11:55 Not Given WORKERS COMPENSATION CLAIMS ANALYST DAMIÁN Protocol Lactated Ringer's 1,000 mls @ 100 mls/hr 09/23/17 12:00 09/25/17 20:29 Lactated Ringers Solution IV 100 mls/hr ASDIR DAMIÁN Administration Ondansetron HCl 4 mg 09/23/17 11:47 09/25/17 17:27 Zofran Injection IVPUSH 4 mg Q6H PRN Administration NAUSEA AND/OR VOMITING Polyethylene Glycol 17 gm 09/25/17 16:20 Miralax (For Daily Use) - PO DAILY PRN CONSTIPATION Senna 1 tab 09/25/17 22:00 09/25/17 21:35 Senna - PO 1 tab BID DAMIÁN Administration Urine, blood cultures pending No recent imaging ASSESSMENT/PLAN: Patient is a 62 year old female with chronic low back pain came in to the hospital for an Elective Laminectomy. POD1, doing well. very mild fever overnight. Possible d/c tomorrow pending approval from surgical team. # Low back pain secondary to L4-L5 spinal stenosis with segmental instability- POD 2 - IV LR @ 100 mls/hr - Bolused 500 cc given mild hypotension to 90s systolic this AM; Dilaudid WORKERS COMPENSATION CLAIMS ANALYST held, dc'ed in PM -PO oxycodone 5mg q4h -IV Zofran 4 mg Q6H PRN (Normal Qtc) -IV Tylenol -Incentive Spirometer -PT - remainder of plan per surgical team - outpt f/u with surgical team in two weeks -flexeril 5mg TID for muscle spasms #Post-op fever -no fevers overnight, no wbc count - U/A, blood and urine cultures sent - ISS counseling #Constipation - no BM or flatus yet; one dose of miralax ordered in PM - Senherbert colace - Miralax PRN # Hypertension- BP 90s this AM hold home meds - Amlodipine 5 mg; Losartan 50mg # Hyperlipidemia Continue Pravastatin 20mg PO HS # Depression Continue Citalopram 10mg # FEN IV LR @ 100 mls/hr Electrolytes WNL Clear liquid diet # Prophylaxis For DVT-SCDs # Code Status: Full Code #Dispo - M/S Plan discussed with attending, Dr Troy Jaquez, PGY1 Visit type - Emergency Visit Emergency Visit: Yes ED Registration Date: 09/23/17 Care time: The patient presented to the Emergency Department on the above date and was hospitalized for further evaluation of their emergent condition. - New Patient This patient is new to me today: No - Critical Care Critical Care patient: No
[2017-09-26] MEDS: DOCUSATE SODIUM 100 MG CAPSULE (FP) PO SCH ×3 (06:41→21:03)
[2017-09-26] MEDS: LACTATED RINGERS SOLUTION 1,000 ML IV SCH ×2 (06:44→20:57)
[2017-09-26 07:48] LABS: BASO % 0.4 % (0-2.0); HEMATOCRIT 26.5 % (32.4-45.2); LYMPH % 14.8 % (8-40); MCH 29.5 pg (25.7-33.7); MCHC 34.1 g/dl (32.0-36.0); MEAN CELL VOLUME 86.5 fl (80-96); MEAN PLT VOLUME 10.5 fl (7.5-11.1); MONO % 9.6 % (3.8-10.2); NEUT % 74.2 % (42.8-82.8); PLATELET COUNT 104 K/MM3 (134-434); RBC 3.06 M/mm3 (3.60-5.2); RDW 13.3 % (11.6-15.6); WHITE BLOOD COUNT 8.1 K/mm3 (4.0-10.0)
[2017-09-26 07:56] LABS: CHLORIDE 104 mmol/L (98-107); POTASSIUM 3.8 mmol/L (3.5-5.1); SODIUM 140 mmol/L (136-145)
[2017-09-26 08:10] LABS: ANION GAP 7 (8-16); BLOOD UREA NITROGEN 6 mg/dL (7-18); CALCIUM 8.1 mg/dL (8.5-10.1); CO2 29 mmol/L (21-32); CREATININE 0.3 mg/dL (0.55-1.02); GLUCOSE,RANDOM 102 mg/dL (74-106)
[2017-09-26] MEDS ORDERED: ACETAMINOPHEN 500 MG TABLET (FP) PO PRN (08:39)
--- NOTE | 2017-09-26 08:59 | PN ---
Teaching Attending Note Name of Resident: Dread Jaquez ATTENDING PHYSICIAN STATEMENT I saw and evaluated the patient. I reviewed the resident's note and discussed the case with the resident. I agree with the resident's findings and plan as documented. SUBJECTIVE: Patient seen and examined. back pain improved. 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 no BM yet. Taking clears. C/o cramps along bilateral thighs OBJECTIVE: Vital Signs Period Temp Pulse Resp BP Sys/Desai Pulse Ox Last 24 Hr 98.2 F-100.5 F 68-95 18-20 90-135/50-84 99 Intake & Output 09/23/17 09/24/17 09/25/17 09/26/17 23:59 23:59 23:59 23:59 Intake Total 2475 2300 2750 800 Output Total 3700 1150 1200 Balance -1225 1150 1550 800 general sitting in chair in no acute distress Chest CTAB, no rales or wheezing Abdomen soft, obese, NT throughout, positive bowel sounds Extremities no edema Back clean vertical spinal dressing, no surrounding edema or erythema noted Home Medication List Medication Instructions Recorded Confirmed Type Amlodipine Besylate 5 mg PO DAILY 09/19/17 09/23/17 History Citalopram Hydrobromide 10 mg PO PRN PRN 09/19/17 09/23/17 History [Citalopram HBr] Losartan Potassium 50 mg PO DAILY 09/19/17 09/23/17 History Pravastatin Sodium 20 mg PO HS 09/19/17 09/23/17 History Ibuprofen 800 mg PO PRN PRN 09/23/17 09/23/17 History Naproxen [Naprosyn] 500 mg PO PRN PRN 09/23/17 09/23/17 History Active Medications Generic Name Dose Route Start Last Admin Trade Name Freq PRN Reason Stop Dose Admin Acetaminophen 500 mg 09/26/17 08:39 Tylenol - PO Q4H PRN PAIN LEVEL 1-5 Citalopram Hydrobromide 10 mg 09/23/17 15:50 Celexa - PO DAILY PRN DEPRESSION Docusate Sodium 100 mg 09/25/17 22:00 09/26/17 06:41 Colace - PO 100 mg TID DAMIÁN Administration Hydromorphone HCl 10 mg 09/23/17 12:00 09/25/17 21:32 Dilaudid Hotel Attendant - SHOE PATTERNMAKER 09/26/17 11:55 Not Given SHOE PATTERNMAKER [facility] Protocol Lactated Ringer's 1,000 mls @ 100 mls/hr 09/23/17 12:00 09/26/17 06:44 Lactated Ringers Solution IV 100 mls/hr ASDIR DAMIÁN Administration Ondansetron HCl 4 mg 09/23/17 11:47 09/25/17 17:27 Zofran Injection IVPUSH 4 mg Q6H PRN Administration NAUSEA AND/OR VOMITING Polyethylene Glycol 17 gm 09/25/17 16:20 Miralax (For Daily Use) - PO DAILY PRN CONSTIPATION Senna 1 tab 09/25/17 22:00 09/25/17 21:35 Senna - PO 1 tab BID DAMIÁN Administration Laboratory Results - last 24 hr 09/25/17 09/26/17 09/26/17 15:36 06:00 06:00 WBC 8.1 RBC 3.06 L Hgb 9.0 L Hct 26.5 L MCV 86.5 MCH 29.5 MCHC 34.1 RDW 13.3 Plt Count 104 L MPV 10.5 Neutrophils % 74.2 Lymphocytes % 14.8 Monocytes % 9.6 Eosinophils % 1.0 Basophils % 0.4 Sodium 140 Potassium 3.8 Chloride 104 Carbon Dioxide 29 Anion Gap 7 L BUN 6 L Creatinine 0.3 L Random Glucose 102 Calcium 8.1 L Urine Color Ltyellow Urine Appearance Clear Urine pH 6.0 Ur Specific [place] 1.018 Urine Protein Negative Urine Glucose (UA) Negative Urine Ketones 2+ H Urine Blood Negative Urine Nitrite Negative Urine Bilirubin Negative Urine Urobilinogen Negative Ur Leukocyte Esterase Negative ASSESSMENT AND PLAN: 62 yof with HTN, HLD, depression, chronic back pain s/p elective laminectomy -Chronic back pain s/p elective laminectomy -Fever post-op day 1 -Hypotension, ?narcotics related, from poor po intake, low suspicion for sepsis or concerning etiology -HTN -HLD -Depression Plan: off Dialudid SHOE PATTERNMAKER. Start oxycodone 5 mg q4h and flexeril 5 mg TID prn. PT eval noted, plan for home with walker and PT when improved. Bowel regimen. No further high grade fevers, no s/s concerning for infection. Blood cx neg so far. Incentive spirometry. Hold home anti-hypertensives today as still with soft BP,Addiitonal IVF bolus 500 ml, anticipate BP will improve as off IV narcotics and as PO intake improves. Continue statin/citalopram DVTPPx per Dr Kush العلي PT eval, plan for home PT d/c when improved, anticipate over next 2-3 days Plan discussed with patient in detail, all questions answered.
[2017-09-26] MEDS ORDERED: PT OWN MED DRAWER 7, Y5N ONE (09:46)
[2017-09-26] MEDS: SENNOSIDES 8.6MG TABLET (FP) PO SCH ×2 (09:57→21:03)
[2017-09-26] MEDS ORDERED: SODIUM CHLORIDE 500 ML IV STA (13:35)
[2017-09-26] MEDS ORDERED: POLYETHYLENE GLYCOL 3350 119 GM BTL PO ONE (13:45)
[2017-09-26] MEDS ORDERED: CYCLOBENZAPRINE HCL 10 MG TABLET (FP) PO SCH (16:00)
[2017-09-26] MEDS: oxyCODONE HCL 5 MG TABLET PO PRN (18:04)
[2017-09-26] MEDS: CYCLOBENZAPRINE HCL 10 MG TABLET (FP) PO SCH (21:03)
--- NOTE | 2017-09-26 23:29 | PN ---
Progress Note (short form) - Note Progress Note: 62F s/p L4 laminectomy, L4-L5 PLIF, & L4-L5 PISF POD #2. (+) Incisional back pain & B/L leg pain. Pt. reports overnight history of headaches, nausea, & vomiting. Pt. denies overnight history of chest pain, shortness of breath, chills, & sweats. (+) Voiding; (-) Flatus; (-) BM. (+) Ambulated in hallway. All labs & vital signs reviewed. PE: AAO X 3, NAD. Lumbar Spine: Dressing C/D/I. B/L LE sensorimotor & vascular exams at baseline. 62F s/p L4 laminectomy, L4-L5 PLIF, & L4-L5 PISF POD #2. -Pain control: per anaesthesia team; FOLDER TIER. -Mechanical DVT PPx. only: ANTONIO's, SCD's. -Incentive spirometry; pulmonary toilet. -PT/OT/Rehab, OOB. -WBAT B/L LE. -Clear liquid diet; advance as tolerated w/(+) flatus or bowel movement. -f/u AM labs. -Care per medical hospitalist service. -Discharge planning. -Will follow. Baron Currie MD (Orthopaedic Surgery).
[2017-09-27] MEDS: oxyCODONE HCL 5 MG TABLET PO PRN ×4 (02:53→21:10)
--- NOTE | 2017-09-27 06:12 | PN ---
Physical Exam: SUBJECTIVE: Patient seen and examined by me this AM - Pain well controlled on current regimen overnight; passing flatus, no BM; ambulating w/ assistance; VSS - Pt endorsing persistent back in lower back at surgical site BL and proximal LEs; States the pain is "tight" and "like a knife stabbing"; Oxycodone increased from 5 to 10mg; denies f/c/n/v/d, [place], dizziness, sob, cp, ab pain, LE weakness/numbness/edema; Pt very distressed regarding pain in legs OBJECTIVE: Vital Signs Intake & Output 09/24/17 09/25/17 09/26/17 09/27/17 23:59 23:59 23:59 23:59 Intake Total 2300 2750 2659 Output Total 1150 1200 900 Balance 1150 1550 1759 Period Temp Pulse Resp BP Sys/Desai Pulse Ox Last 24 Hr 98.2 F-99.3 F 75-101 18-20 90-117/50-72 99 GENERAL: Middle aged woman, distressed HEAD: Normal with no signs of trauma. EYES: PERRL, extraocular movements intact, sclera anicteric, conjunctiva clear. No ptosis. ENT: Ears normal, nares patent, oropharynx clear without exudates, moist mucous membranes. NECK: Trachea midline, full range of motion, supple. LUNGS: Breath sounds equal, clear to auscultation bilaterally, no wheezes, no crackles, no accessory muscle use. HEART: Regular rate and rhythm, S1, S2 without murmur, rub or gallop. ABDOMEN: Mild CVA tenderness. No erythema or purulence at surgical site, dressing c/d/i. Soft, nontender, nondistended, normoactive bowel sounds, no guarding, no rebound, no hepatosplenomegaly, no masses. EXTREMITIES: 2+ pulses, warm, well-perfused, no edema. No pain on palpation or palpable muscle spasm in proximal LEs BL. NEUROLOGICAL: Cranial nerves II through XII grossly intact. Normal speech, gait not observed. PSYCH: Very distress, tearful SKIN: Warm, dry, normal turgor, no rashes or lesions noted Laboratory Results - last 24 hr CBC, BMP 09/27/17 07:30 09/26/17 06:00 09/26/17 06:00 09/26/17 06:00 09/26/17 09/26/17 06:00 06:00 WBC 8.1 RBC 3.06 L Hgb 9.0 L Hct 26.5 L MCV 86.5 MCH 29.5 MCHC 34.1 RDW 13.3 Plt Count 104 L MPV 10.5 Neutrophils % 74.2 Lymphocytes % 14.8 Monocytes % 9.6 Eosinophils % 1.0 Basophils % 0.4 Sodium 140 Potassium 3.8 Chloride 104 Carbon Dioxide 29 Anion Gap 7 L BUN 6 L Creatinine 0.3 L Random Glucose 102 Calcium 8.1 L Active Medications Generic Name Dose Route Start Last Admin Trade Name Freq PRN Reason Stop Dose Admin Acetaminophen 500 mg 09/26/17 08:39 09/26/17 20:59 Tylenol - PO 500 mg Q4H PRN Administration PAIN LEVEL 1-5 Citalopram Hydrobromide 10 mg 09/23/17 15:50 Celexa - PO DAILY PRN DEPRESSION Cyclobenzaprine HCl 5 mg 09/26/17 22:00 09/26/17 21:03 Flexeril - PO 5 mg TID DAMIÁN Administration Docusate Sodium 100 mg 09/25/17 22:00 09/26/17 21:03 Colace - PO 100 mg TID DAMIÁN Administration Lactated Ringer's 1,000 mls @ 100 mls/hr 09/23/17 12:00 09/26/17 20:57 Lactated Ringers Solution IV 100 mls/hr ASDIR DAMIÁN Administration Ondansetron HCl 4 mg 09/23/17 11:47 09/25/17 17:27 Zofran Injection IVPUSH 4 mg Q6H PRN Administration NAUSEA AND/OR VOMITING Oxycodone HCl 5 mg 09/26/17 15:48 09/27/17 02:53 Roxicodone - PO 5 mg Q4H PRN Administration PAIN LEVEL 6-10 Polyethylene Glycol 17 gm 09/25/17 16:20 09/26/17 20:58 Miralax (For Daily Use) - PO 17 grams DAILY PRN Administration CONSTIPATION Senna 1 tab 09/25/17 22:00 09/26/17 21:03 Senna - PO 1 tab BID DAMIÁN Administration Microbiology 09/25/17 09:25 Blood - Peripheral Venous Blood Culture - Preliminary NO GROWTH OBTAINED AFTER 24 HOURS, INCUBATION TO CONTINUE FOR 4 DAYS. 09/25/17 09:10 Blood - Peripheral Venous Blood Culture - Preliminary NO GROWTH OBTAINED AFTER 24 HOURS, INCUBATION TO CONTINUE FOR 4 DAYS. No recent imaging ASSESSMENT/PLAN: Patient is a 62 year old female with chronic low back pain came in to the hospital for an Elective Laminectomy. POD1, doing well. very mild fever overnight. Possible d/c tomorrow pending approval from surgical team. d/c to SNF tomorrow at 1PM. # Low back pain secondary to L4-L5 spinal stenosis with segmental instability- POD 3; pt still with significant surgical site and proximal BL leg pain - IV LR @ 100 mls/hr; BP improved to 110-120 systolic; d/c tomorrow - Pt tolerating clears, advance to regular diet; +flatus, still no BM; ordered for rectal dulcolax - PO oxycodone 5mg q4h increased to 10mg -IV Zofran 4 mg Q6H PRN (Normal Qtc) -IV Tylenol -Incentive Spirometer -PT - remainder of plan per surgical team - outpt f/u with surgical team in two weeks -flexeril 5mg increased to 10mg TID - Plan for d/c to SNF tomorrow at 1PM for short stay due to limited recovery of gait secondary to post-op pain #Post-op fever -no fevers overnight, no wbc count - U/A, blood neg - urine cultures + for proteus, LFNB; abx not indicated at this time - ISS counseling #Constipation - no BM or flatus yet; one dose of miralax ordered in PM - Senna, colace - Miralax PRN - ordered for one time rectal suppository # Hypertension- BP normotensive this AM hold home meds for now- Amlodipine 5 mg; Losartan 50mg # Hyperlipidemia Continue Pravastatin 20mg PO HS # Depression Continue Citalopram 10mg # FEN IV LR @ 100 mls/hr Electrolytes WNL Regular diet # Prophylaxis For DVT-SCDs # Code Status: Full Code #Dispo - M/S Plan discussed with attending, Dr Troy Jaquez, PGY1 Visit type - Emergency Visit Emergency Visit: Yes ED Registration Date: 09/23/17 Care time: The patient presented to the Emergency Department on the above date and was hospitalized for further evaluation of their emergent condition. - New Patient This patient is new to me today: No - Critical Care Critical Care patient: No
[2017-09-27] MEDS: DOCUSATE SODIUM 100 MG CAPSULE (FP) PO SCH ×3 (06:15→21:09)
[2017-09-27] MEDS: CYCLOBENZAPRINE HCL 10 MG TABLET (FP) PO SCH ×3 (06:15→21:09)
[2017-09-27] MEDS: LACTATED RINGERS SOLUTION 1,000 ML IV SCH ×2 (06:21→13:16)
[2017-09-27 08:30] LABS: BASO % 0.6 % (0-2.0); EOS % 2.3 % (0-4.5); HEMATOCRIT 29.5 % (32.4-45.2); LYMPH % 30.5 % (8-40); MCH 29.2 pg (25.7-33.7); MCHC 33.8 g/dl (32.0-36.0); MEAN CELL VOLUME 86.6 fl (80-96); MEAN PLT VOLUME 10.3 fl (7.5-11.1); MONO % 8.1 % (3.8-10.2); NEUT % 58.5 % (42.8-82.8); PLATELET COUNT 142 K/MM3 (134-434); RBC 3.41 M/mm3 (3.60-5.2); RDW 13.5 % (11.6-15.6)
[2017-09-27] MEDS: SENNOSIDES 8.6MG TABLET (FP) PO SCH ×2 (09:47→21:09)
[2017-09-27 16:37] LABS: BASO % 0.7 % (0-2.0); EOS % 3.4 % (0-4.5); HEMOGLOBIN 9.6 GM/dL (10.7-15.3); LYMPH % 34.1 % (8-40); MCH 29.6 pg (25.7-33.7); MCHC 34.1 g/dl (32.0-36.0); MEAN CELL VOLUME 86.6 fl (80-96); MEAN PLT VOLUME 10.2 fl (7.5-11.1); MONO % 8.5 % (3.8-10.2); NEUT % 53.3 % (42.8-82.8); PLATELET COUNT 166 K/MM3 (134-434); RBC 3.23 M/mm3 (3.60-5.2); RDW 13.5 % (11.6-15.6); WHITE BLOOD COUNT 6.7 K/mm3 (4.0-10.0)
--- NOTE | 2017-09-27 16:37 | DS ---
Physical Exam: SUBJECTIVE: Patient seen and examined - passing flatus, but still no BM; Unable to ambulate w/ PT due to pain; VSS; tolerating bed to chair - Pt pain better controlled overnight with increased flexeril and oxycodone dose ; Denies f/c/n/v/d, no CP, sob, ab pain, LE edema, peripheral numbness or weakness OBJECTIVE: Vital Signs Intake & Output 09/25/17 09/26/17 09/27/17 09/28/17 23:59 23:59 23:59 23:59 Intake Total 2750 2659 1675 1200 Output Total 1200 900 Balance 1550 1759 1675 1200 Period Temp Pulse Resp BP Sys/Desai Pulse Ox Last 24 Hr 98.5 F-100.4 F 75-105 -18 111-122/53-68 99 PHYSICAL EXAM GENERAL: Middle aged woman, NAD HEAD: Normal with no signs of trauma. EYES: PERRL, extraocular movements intact, sclera anicteric, conjunctiva clear. No ptosis. ENT: Ears normal, nares patent, oropharynx clear without exudates, moist mucous membranes. NECK: Trachea midline, full range of motion, supple. LUNGS: Breath sounds equal, clear to auscultation bilaterally, no wheezes, no crackles, no accessory muscle use. HEART: Regular rate and rhythm, S1, S2 without murmur, rub or gallop. ABDOMEN: Mild R CVA tenderness. No erythema or purulence at surgical site, dressing c/d/i. Soft, nontender, nondistended, normoactive bowel sounds, no guarding, no rebound, no hepatosplenomegaly, no masses. EXTREMITIES: 2+ pulses, warm, well-perfused, no edema. No pain on palpation or palpable muscle spasm in proximal LEs BL. NEUROLOGICAL: Cranial nerves II through XII grossly intact. Normal speech, gait not observed. PSYCH: Normal, cooperative SKIN: Warm, dry, normal turgor, no rashes or lesions noted LABS Laboratory Results - last 24 hr 09/27/17 07:30 WBC 7.0 RBC 3.41 L Hgb 10.0 L D Hct 29.5 L MCV 86.6 MCH 29.2 MCHC 33.8 RDW 13.5 Plt Count 142 D MPV 10.3 Neutrophils % 58.5 D Lymphocytes % 30.5 D Monocytes % 8.1 Eosinophils % 2.3 D Basophils % 0.6 Microbiology 09/25/17 09:25 Blood - Peripheral Venous Blood Culture - Preliminary NO GROWTH OBTAINED AFTER 48 HOURS, INCUBATION TO CONTINUE FOR 3 DAYS. 09/25/17 09:10 Blood - Peripheral Venous Blood Culture - Preliminary NO GROWTH OBTAINED AFTER 48 HOURS, INCUBATION TO CONTINUE FOR 3 DAYS. 09/25/17 15:55 Urine - Urine Clean Catch Urine Culture - Preliminary Proteus Species Lactose Fermenting Neg Bacilli No recent imaging HOSPITAL COURSE: Prehospital course: Patient is a 62 year old female came in to the hospital for an Elective Laminectomy. As per the patient, she had chronic low back pain, had h/o mechanical fall twice in 2012 and 2014. Low back pain had been progressively getting worse since then. Saw Dr. Currie as outpatient and elective laminectomy was done yesterday (09/23/2017). Patient is currently on Dilaudid VETERINARY MANAGER for pain control. Complaints of pain at the surgical site, controlled with VETERINARY MANAGER, has nausea and vomited once this morning, non bloody, non projectile, thin greenish liquid. Denies chest pain, sob, cough, palpitation, abdominal pain, tingling or numbness. Has been passing flatus. Webb in place. Hospital course: Pt admitted POD1 s/p laminectomy of L4-L5 spinal stenosis. EBL 300ml. Started on 100cc/hr LR, VETERINARY MANAGER dilaudid pump for pain control, webb, zofran/tylenol for pain/nausea. Pt initially w/ mild anemia of 10.2, no other lab abnormalities. UA 2+ ketones, otherwise normal. No imaging. Pt febrile to 100.4 overnight, blood and urine cultures sent on AM of day 2 of admission. Pt complaining of persistent back pain and proximal leg pain. Dilaudid VETERINARY MANAGER d/c on day 3 admission , given pt with persistent hypotension to 90s systolic. Pt transitioned to PO oxy for pain control, flexeril for muscle spasm in proximal legs. Htn meds held due to hypotension, pt bolused 500cc in AM of POD3, maintained on IVFs. Pt still with persistent surgical site and proximal leg pain POD4, no BM however + flatus and tolerating clears; advanced to regular diet. Pt unable to ambulate with PT due to pain. Pt pain response appears out of proportion to actual symptomatology, likely emotional/psychiatric component. Pt for discharge to SNF on POD 5 for short-term rehab. Urine culture + for proteus, LFNB, however pt asymptomatic with no further WBC or fevers. Date of Admission:09/23/17 Date of Discharge: 09/28/17 Pt is medically stable and cleared for discharge to SNF with outpt f/u with Dr. Soriano in two weeks for post-op management. Minutes to complete discharge: 35 Discharge Summary Reason For Visit: OTHER INTERVERTEBRAL DISC DISORDERS, LUMBAR REGION - Instructions - Home Medications Comprehensive Discharge Medication List: Ambulatory Orders Amlodipine Besylate 5 mg PO DAILY 09/19/17 Citalopram Hydrobromide [Citalopram HBr] 10 mg PO PRN PRN 09/19/17 Losartan Potassium 50 mg PO DAILY 09/19/17 Pravastatin Sodium 20 mg PO HS 09/19/17 Ibuprofen 800 mg PO PRN PRN 09/23/17 Naproxen [Naprosyn] 500 mg PO PRN PRN 09/23/17 This patient is new to me today: No Emergency Visit: Yes ED Registration Date: 09/23/17 Care time: The patient presented to the Emergency Department on the above date and was hospitalized for further evaluation of their emergent condition. Critical Care patient: No - Discharge Referral Referred to [facility] Med [facility] No
[2017-09-27 16:47] LABS: ALBUMIN 2.7 g/dl (3.4-5.0); ANION GAP 5 (8-16); BILIRUBIN,TOTAL 0.5 mg/dL (0.2-1.0); BLOOD UREA NITROGEN 5 mg/dL (7-18); CALCIUM 8.3 mg/dL (8.5-10.1); CHLORIDE 106 mmol/L (98-107); CO2 31 mmol/L (21-32); CREATININE 0.4 mg/dL (0.55-1.02); GLUCOSE,RANDOM 108 mg/dL (74-106); POTASSIUM 3.6 mmol/L (3.5-5.1); SGOT/AST 29 U/L (15-37); SGPT/ALT 26 U/L (12-78); SODIUM 142 mmol/L (136-145); TOT PROT 5.6 g/dl (6.4-8.2)
[2017-09-27 16:48] LABS: ALK PHOS 46 U/L (45-117)
--- NOTE | 2017-09-27 18:37 | PN ---
Teaching Attending Note Name of Resident: Dread Jaquez ATTENDING PHYSICIAN STATEMENT I saw and evaluated the patient. I reviewed the resident's note and discussed the case with the resident. I agree with the resident's findings and plan as documented with exceptions below. SUBJECTIVE: Patient seen and examined. Back pain improved, no BM yet, working with PT, no abdominal or urinary symptoms. no new cough or chills. OBJECTIVE: Vital Signs Period Temp Pulse Resp BP Sys/Desai Pulse Ox Last 24 Hr 98.5 F-100.4 F 75-105 -18 108-122/60-84 99 Intake & Output 09/24/17 09/25/17 09/26/17 09/27/17 23:59 23:59 23:59 23:59 Intake Total 2300 2750 2659 300 Output Total 1150 1200 900 Balance 1150 1550 1759 300 General: sitting in chair in no acute distress Chest: CTAB, no rales or wheezing abdomen:soft, obese, NT extremities: no edema Musculoskeletal: clean dressing Home Medication List Medication Instructions Recorded Confirmed Type Amlodipine Besylate 5 mg PO DAILY 09/19/17 09/23/17 History Citalopram Hydrobromide 10 mg PO PRN PRN 09/19/17 09/23/17 History [Citalopram HBr] Losartan Potassium 50 mg PO DAILY 09/19/17 09/23/17 History Pravastatin Sodium 20 mg PO HS 09/19/17 09/23/17 History Ibuprofen 800 mg PO PRN PRN 09/23/17 09/23/17 History Naproxen [Naprosyn] 500 mg PO PRN PRN 09/23/17 09/23/17 History Active Medications Generic Name Dose Route Start Last Admin Trade Name Freq PRN Reason Stop Dose Admin Acetaminophen 500 mg 09/26/17 08:39 09/26/17 20:59 Tylenol - PO 500 mg Q4H PRN Administration PAIN LEVEL 1-5 Citalopram Hydrobromide 10 mg 09/23/17 15:50 Celexa - PO DAILY PRN DEPRESSION Cyclobenzaprine HCl 10 mg 09/27/17 14:00 09/27/17 13:50 Flexeril - PO 10 mg TID DAMIÁN Administration Docusate Sodium 100 mg 09/25/17 22:00 09/27/17 13:33 Colace - PO 100 mg TID DAMIÁN Administration Lactated Ringer's 1,000 mls @ 100 mls/hr 09/23/17 12:00 09/27/17 13:16 Lactated Ringers Solution IV Not Given ASDIR DAMIÁN Ondansetron HCl 4 mg 09/23/17 11:47 09/25/17 17:27 Zofran Injection IVPUSH 4 mg Q6H PRN Administration NAUSEA AND/OR VOMITING Oxycodone HCl 10 mg 09/27/17 08:15 09/27/17 13:33 Roxicodone - PO 10 mg Q4H PRN Administration PAIN LEVEL 6-10 Polyethylene Glycol 17 gm 09/25/17 16:20 09/26/17 20:58 Miralax (For Daily Use) - PO 17 grams DAILY PRN Administration CONSTIPATION Senna 1 tab 09/25/17 22:00 09/27/17 09:47 Senna - PO 1 tab BID DAMIÁN Administration ASSESSMENT AND PLAN: 62 yof with HTN, HLD, depression, chronic back pain s/p elective laminectomy -Chronic back pain s/p elective laminectomy -Fever post-op day 1 -Hypotension, ?narcotics related, from poor po intake, low suspicion for sepsis or concerning etiology -HTN -HLD -Depression 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 PT estefany noted. Bowel regimen, dulcolax x 1. Urine cx noted, no urinary symptoms, clean u/a, no need for abx. Aggressive incentive spirometry. D/c IVF, advance to regular diet. Resume anti-hypertensives based on BP readings. Continue statin/citalopram DVTPPx per Dr Currie Dispo PT evgodwin, plan for SNF tomorrow if bed available. Plan discussed with patient in detail, all questions answered.
[2017-09-28] MEDS: oxyCODONE HCL 5 MG TABLET PO PRN ×2 (04:00→09:38)
[2017-09-28] MEDS: DOCUSATE SODIUM 100 MG CAPSULE (FP) PO SCH ×2 (06:07→13:15)
[2017-09-28] MEDS: CYCLOBENZAPRINE HCL 10 MG TABLET (FP) PO SCH (06:08)
[2017-09-28] MEDS: SENNOSIDES 8.6MG TABLET (FP) PO SCH (09:16)
--- NOTE | 2017-09-28 09:56 | PN ---
Teaching Attending Note Name of Resident: Dread Jaquez ATTENDING PHYSICIAN STATEMENT I saw and evaluated the patient. I reviewed the resident's note and discussed the case with the resident. I agree with the resident's findings and plan as documented with exceptions below. SUBJECTIVE: Patient seen and examined. back pain improved, passing gas but no BM, no abdominal pain or complaints. AMbulating well. OBJECTIVE: Vital Signs Period Temp Pulse Resp BP Sys/Desai Pulse Ox Last 24 Hr 97.8 F-100.4 F 72-105 18-20 101-119/59-84 98 General; Standing in room, ambulating with no concerns CVS:S1S2 regular Chest: CTAB, no rales or wheezing ABdomen:soft, NT ND throughout Extremities: no edema Back: clean dressing, no concerns. Home Medication List Medication Instructions Recorded Confirmed Type Amlodipine Besylate 5 mg PO DAILY 09/19/17 09/23/17 History Citalopram Hydrobromide 10 mg PO PRN PRN 09/19/17 09/23/17 History [Citalopram HBr] Losartan Potassium 50 mg PO DAILY 09/19/17 09/23/17 History Pravastatin Sodium 20 mg PO HS 09/19/17 09/23/17 History Ibuprofen 800 mg PO PRN PRN 09/23/17 09/23/17 History Naproxen [Naprosyn] 500 mg PO PRN PRN 09/23/17 09/23/17 History Active Medications Generic Name Dose Route Start Last Admin Trade Name Freq PRN Reason Stop Dose Admin Acetaminophen 500 mg 09/26/17 08:39 09/26/17 20:59 Tylenol - PO 500 mg Q4H PRN Administration PAIN LEVEL 1-5 Citalopram Hydrobromide 10 mg 09/23/17 15:50 09/27/17 21:09 Celexa - PO 10 mg DAILY PRN Administration DEPRESSION Cyclobenzaprine HCl 10 mg 09/27/17 14:00 09/28/17 06:08 Flexeril - PO 10 mg TID DAMIÁN Administration Docusate Sodium 100 mg 09/25/17 22:00 09/28/17 06:07 Colace - PO 100 mg TID DAMIÁN Administration Lactated Ringer's 1,000 mls @ 100 mls/hr 09/23/17 12:00 09/27/17 13:16 Lactated Ringers Solution IV Not Given ASDIR [facility] Ondansetron HCl 4 mg 09/23/17 11:47 09/25/17 17:27 Zofran Injection IVPUSH 4 mg Q6H PRN Administration NAUSEA AND/OR VOMITING Oxycodone HCl 10 mg 09/27/17 08:15 09/28/17 09:38 Roxicodone - PO 10 mg Q4H PRN Administration PAIN LEVEL 6-10 Polyethylene Glycol 17 gm 09/25/17 16:20 09/26/17 20:58 Miralax (For Daily Use) - PO 17 grams DAILY PRN Administration CONSTIPATION Senna 1 tab 09/25/17 22:00 09/28/17 09:16 Senna - PO 1 tab BID DAMIÁN Administration Laboratory Results - last 24 hr 09/27/17 09/27/17 16:00 16:00 WBC 6.7 RBC 3.23 L Hgb 9.6 L Hct 28.0 L MCV 86.6 MCH 29.6 MCHC 34.1 RDW 13.5 Plt Count 166 MPV 10.2 Neutrophils % 53.3 Lymphocytes % 34.1 Monocytes % 8.5 Eosinophils % 3.4 Basophils % 0.7 Sodium 142 Potassium 3.6 Chloride 106 Carbon Dioxide 31 Anion Gap 5 L BUN 5 L Creatinine 0.4 L Creat Clearance w eGFR > 60 Random Glucose 108 H Calcium 8.3 L Total Bilirubin 0.5 AST 29 ALT 26 Alkaline Phosphatase 46 Total Protein 5.6 L Albumin 2.7 L Microbiology 09/25/17 09:25 Blood - Peripheral Venous Blood Culture - Preliminary NO GROWTH OBTAINED AFTER 72 HOURS, INCUBATION TO CONTINUE FOR 2 DAYS. 09/25/17 09:10 Blood - Peripheral Venous Blood Culture - Preliminary NO GROWTH OBTAINED AFTER 72 HOURS, INCUBATION TO CONTINUE FOR 2 DAYS. 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 PT eval noted. Bowel regimen, dulcolax x 1. enema x 1 Urine cx noted, no urinary symptoms, clean u/a, no need for abx. Aggressive incentive spirometry. Off IVF, tolerating diet well. Hold anti-hypertensives on d/c, to be resumed outpatient based on BP readings. Suspect normalization of BP here from narcotics and inadequate PO intake earlier , which has now improved. Continue statin/citalopram DVTPPx per Dr Currie Dispo d/c to SNF today with outpatient follow up with Dr. Currie. Plan discussed with patient in detail, all questions answered.
[2017-09-28] MEDS ORDERED: oxyCODONE HCL 5 MG TABLET PO PRN (10:46)
[2017-09-28] MEDS ORDERED: CYCLOBENZAPRINE HCL 10 MG TABLET (FP) PO PRN (10:47)
--- NOTE | 2017-09-28 11:42 | PN ---
Progress Note (short form) - Note Progress Note: Doing well Started ambulating in the hallway No leg pain C/O incisional painbut improving. Vitals all stable. PLAN D/c to rehab See in 10 days in the office Daily dry dressings PT FWBAT Pain Mx
[2017-09-28] MEDS: LACTATED RINGERS SOLUTION 1,000 ML IV SCH (13:14)
[2017-09-28 15:37] VITALS: BP 122/78; PULSE 86; TEMP 98.2
== END 2017-09-28 15:52 | DRG 304 ==
LOC: JSAMEDAYSX 06:21 → EDSTATUS 09:50 → J8W 20:44
PROVIDERS: ADMIT Orthopaedic Surgery Orthopaedic Surgery of the Spine; ATTEND Hospitalist
PROC: 0SG00AJ Fusion of Lumbar Vertebral Joint with Interbody Fusion Device, Posterior Approach, Anterior Column, Open Approach (ICD-10-PCS; 2017-09-23)
PROC: 0SB20ZZ Excision of Lumbar Vertebral Disc, Open Approach (ICD-10-PCS; principal; 2017-09-23 08:00)
DX: M51.26 Other intervertebral disc displacement, lumbar region (principal); I95.9 Hypotension, unspecified; M48.061 Spinal stenosis, lumbar region without neurogenic claudication; M54.16 Radiculopathy, lumbar region; I10 Essential (primary) hypertension; E78.5 Hyperlipidemia, unspecified; F32.9 Major depressive disorder, single episode, unspecified; Z87.891 Personal history of nicotine dependence; Z88.0 Allergy status to penicillin; R50.82 Postprocedural fever; K59.00 Constipation, unspecified
CPT/HCPCS: 36415; 76000-TC-FY; 80048; 80053; 81003; 85025; 85027; 86850; 86891; 86900; 86901; 87040; 87086; 87186; 88304-TC; 94010; 94760; 97116-GP; 97161-GP; J0131; J1644

== ENCOUNTER 2018-05-19 12:12 | Emergency (ER) | payer OTHER ==
[2018-05-19 12:35] VITALS: BP 157/100; PULSE 102; TEMP 98.9; BMI 25.6
[2018-05-19] MEDS ORDERED: KETOROLAC TROMETHAMINE 60 MG/2 ML VIAL IM ONE (14:53)
[2018-05-19] MEDS ORDERED: diazePAM 5 MG TABLET PO ONE (14:53)
[2018-05-19] MEDS ORDERED: LIDOCAINE 5% TOPICAL PATCH TP ONE (14:53)
--- NOTE | 2018-05-19 15:20 | PDOC ---
Attending Attestation - HPI HPI: 05/19/18 15:30 CC: Back Pain HPI: The patient is a 63 year old female, with a significant past medical history of hypertension, hyperlipidemia, chronic back pain, L4-L5 spinal stenosis (s/p L4 laminectomy [address] Currie), who presents to the emergency department with, chronic back pain. Patient endorses she ran out of her prescription Naproxen and Oxycodone. Patient notes that she was seen at her orthopedic surgeons office today for similar symptoms who advised her to report to the ED for pain management. She denies recent fevers, chills, headache or dizziness. She denies recent nausea, vomit, diarrhea or constipation. She denies recent dysuria, frequency, urgency or hematuria. She denies recent chest pain or shortness of breath. Allergies: Penicillins. Past surgical history: L4 laminectomy September 2017 Social history: Former smoker. Orthopedic Surgeon: Dr. Currie - Physicial Exam PE: 05/19/18 15:30 Vitals: Triage vital signs reviewed General Appearance: Uncomfortably appearing. Head: Atraumatic Neck: Supple; No nuchal rigidity Chest Wall: Nontender Cardiac: Regular rate and rhythm, no murmurs, no rubs, no gallops Lungs: Clear to auscultation bilateral, good air movement bilaterally +Back: Well-healing laminectomy scar. Rectal: Refer to resident exam. Extremities: Full range of motion to all extremities, no cyanosis, clubbing, or edema Skin: Warm and dry, no rashes or lesions, no rash, no petechiae +Neuro: AOX3; Cranial Nerves 2-12 grossly intact. Decreased sensation to the bilateral lower extremities. Strength fully intact. Reflexes fully intact. Psych: Normal mood, normal affect <David Germain - Last Filed: 05/19/18 15:30> - Resident Resident Name: Desire Mancuso - ED Attending Attestation I have performed the following: I have examined & evaluated the patient, The case was reviewed & discussed with the resident, I agree w/resident's findings & plan, Exceptions are as noted - Medical Decision Making 05/19/18 16:36 Chronic low back discomfort worse over the last several days no new bowel or bladder incontinence weakness or numbness normal rectal exam per resident's examination Patient treated in the ED with Toradol Valium lidocaine patch and feels much better we'll discharge Medrol Dosepak Valium lidocaine patches as well as pain management follow-up Findings, need for follow-up and strict return instructions discussed with patient. <Abel Champagne - Last Filed: 05/19/18 16:36> Attestations - Attestations 05/19/18 15:30 Documentation prepared by David Germain, acting as medical center director for Abel Champagne MD. <David Germain - Last Filed: 05/19/18 15:30>
[2018-05-19] MEDS ORDERED: LIDOCAINE 5% TOPICAL PATCH ONE (15:35)
[2018-05-19] MEDS ORDERED: KETOROLAC TROMETHAMINE 60 MG/2 ML VIAL ONE (15:35)
[2018-05-19] MEDS ORDERED: diazePAM 5 MG TABLET ONE (15:35)
[2018-05-19] MEDS ORDERED: DEXAMETHASONE SOD PHOSPHATE 4 MG/1 ML VIAL IM ONE (16:04)
--- NOTE | 2018-05-19 16:04 | PDOC ---
Attending Attestation - Resident Resident Name: Desire Mancuso - ED Attending Attestation I have performed the following: I have examined & evaluated the patient, The case was reviewed & discussed with the resident, I agree w/resident's findings & plan, Exceptions are as noted - HPI HPI: 05/20/18 15:40 reviewed residents HPI - Physicial Exam PE: 05/20/18 15:41 reviewed residents PE - Medical Decision Making 05/20/18 15:41 Patient with chronic back pain status post 2 laminectomies with fusion presents to the ED unable to see her spine surgeon or worsening low back discomfort No new weakness numbness bowel or bladder incontinence pain radiates bilaterally She had a nonfocal neurologic examination her reflexes were intact she had good rectal tone on examination Status post Toradol Decadron Valium and lidocaine patch patient feels much better is ambulate more comfortably around the emergency department. She was provided with a pain management follow-up as an outpatient She'll follow-up pain management in her spine surgeon this week. Findings, need for follow-up and strict return instructions discussed patient.
[2018-05-19] MEDS ORDERED: DEXAMETHASONE SOD PHOSPHATE 4 MG/1 ML VIAL ONE (16:07)
[2018-05-19] MEDS ORDERED: DEXAMETHASONE SOD PHOSPHATE 10 MG/1 ML VIAL IM ONE (16:10)
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
[2018-05-19] MEDS ORDERED: LIDOCAINE PATCH REMOVAL MC SCH (22:00)
== END 2018-05-19 16:30 | disposition home or self-care (01) ==
LOC: JER 12:12
PROC: 3E033GC Introduction of Other Therapeutic Substance into Peripheral Vein, Percutaneous Approach (ICD-10-PCS; principal; 2018-05-19)
PROC: 3E0333Z Introduction of Anti-inflammatory into Peripheral Vein, Percutaneous Approach (ICD-10-PCS; 2018-05-19)
DX: M54.5 Low back pain (principal); I10 Essential (primary) hypertension; E78.5 Hyperlipidemia, unspecified; F32.9 Major depressive disorder, single episode, unspecified; G89.29 Other chronic pain; Z87.891 Personal history of nicotine dependence; E78.00 Pure hypercholesterolemia, unspecified
CPT/HCPCS: 99282-25